=== PATIENT | male | born 1940 | race Caucasian/White ===

== ENCOUNTER → 2022-11-18 09:07 | Outpatient (CLI) | payer MEDICARE, BC, SELFPAY ==
[2022-11-18 19:44] LABS: Add Manual Diff / Slide Review NO; Basophils Absolute Auto 0 /uL (0-100); Basophils Percent Auto 0.3 % (0-2); Eosinophils Absolute Auto 100 /uL (0-450); Eosinophils Percent Auto 0.8 % (2-4); Hematocrit 36.6 % (41-53); Lymphocytes Absolute Auto 1500 /uL (1100-4500); Lymphocytes Percent Auto 9.9 % (25-40); Mean Corpuscular HGB Conc 32.8 % (30-36); Mean Corpuscular Hemoglobin 28.6 PG (26-34); Mean Corpuscular Volume 87.4 fL (80-100); Monocytes Absolute Auto 1300 /uL (0-900); Monocytes Percent Auto 8.6 % (3-14); Neutrophils Absolute Auto 11800 /uL (1500-7000); Neutrophils Percent Auto 80.4 % (50-75); Platelet Count 369 X10^3/uL (150-400); Red Blood Cell Count 4.19 X10^6/uL (4.5-5.9); Red Cell Distribution Width 12.9 % (11.6-14.8); White Blood Cell Count 14.7 X10^3/uL (4.5-11.0)
[2022-11-18 19:59] LABS: Alanine Aminotransferase 17 IU/L (<50); Albumin 3.4 g/dL (3.5-5.0); Alkaline Phosphatase 73 U/L (38-126); Aspartate Aminotransferase 24 IU/L (17-59); BUN Creatinine Ratio 24.5 (6-22); Bilirubin Total 0.5 mg/dL (0.2-1.3); Blood Urea Nitrogen 24 mg/dL (9-20); Calcium 9.3 mg/dL (8.4-10.2); Carbon Dioxide 29 mmol/L (22-32); Chloride 99 mmol/L (98-107); Cholesterol 157 mg/dL (140-199); Estimated Glomerular Filt Rate > 60 mL/min (>60); Globulin 3.3 g/dL (1.7-4.1); Glucose 137 mg/dL (80-110); HDL Cholesterol 36 mg/dL (40-60); HEMOLYSIS < 15 (0-50); LDL Cholesterol Calculated 108 mg/dL (<100); Potassium 4.8 mmol/L (3.4-5.1); Sodium 137 mmol/L (137-145); Total Protein 6.7 g/dL (6.3-8.2); Triglycerides 63 mg/dL (35-150)
[2022-11-18 20:26] LABS: Prostate Specific Antigen Scrn 4.07 ng/mL (0.1-4.0)
== END ==
PROVIDERS: PCP Family Medicine; Visit Provider Physician Assistant
DX: Z13.220 Encounter for screening for lipoid disorders (principal); Z12.5 Encounter for screening for malignant neoplasm of prostate; R53.83 Other fatigue
CPT/HCPCS: 80053; 80061; 85025; G0103

== ENCOUNTER → 2022-11-26 11:47 | Outpatient (CLI) | payer MEDICARE, BC, SELFPAY | PROVIDERS: PCP Family Medicine; Visit Provider Family Medicine | DX: R53.83 Other fatigue (principal); D64.9 Anemia, unspecified; D72.829 Elevated white blood cell count, unspecified; M25.60 Stiffness of unspecified joint, not elsewhere classified; M79.10 Myalgia, unspecified site; R01.1 Cardiac murmur, unspecified | CPT/HCPCS: 87086 ==

== ENCOUNTER → 2022-11-30 13:50 | Outpatient (CLI) | payer MEDICARE, BC, SELFPAY ==
[2022-11-30 19:33] LABS: Reticulocyte Count, Percent 0.7 % (0.9-2.6)
[2022-11-30 19:34] LABS: Add Manual Diff / Slide Review NO; Basophils Absolute Auto 100 /uL (0-100); Basophils Percent Auto 0.4 % (0-2); Eosinophils Absolute Auto 100 /uL (0-450); Eosinophils Percent Auto 1.1 % (2-4); Hematocrit 34.8 % (41-53); Hemoglobin 11.3 g/dL (13.5-17.5); Lymphocytes Absolute Auto 1600 /uL (1100-4500); Lymphocytes Percent Auto 11.6 % (25-40); Mean Corpuscular HGB Conc 32.3 % (30-36); Mean Corpuscular Volume 86.8 fL (80-100); Monocytes Absolute Auto 1100 /uL (0-900); Neutrophils Absolute Auto 10800 /uL (1500-7000); Neutrophils Percent Auto 78.9 % (50-75); Platelet Count 445 X10^3/uL (150-400); Red Blood Cell Count 4.01 X10^6/uL (4.5-5.9); Red Cell Distribution Width 13.1 % (11.6-14.8); White Blood Cell Count 13.7 X10^3/uL (4.5-11.0)
[2022-11-30 19:39] LABS: HEMOLYSIS < 15 (0-50); Iron 17 ug/dL (49-181)
[2022-11-30 19:48] LABS: HEMOLYSIS < 15 (0-50); Rheumatoid Factor 9.5 IU/mL (<12.0)
[2022-11-30 19:52] LABS: Erythrocyte Sedimentation Rate 69 MM/HR (0-15)
[2022-11-30 19:54] LABS: Percent Iron Saturation 7 % (20-50); Total Iron Binding Capacity 229 ug/dL (261-462); Transferrin 150 mg/dL (206-381)
[2022-11-30 20:40] LABS: TSH w/ Reflex to FT4 9.08 uIU/mL (0.47-4.68)
[2022-11-30 20:55] LABS: Creatine Kinase 27 U/L (55-170); Uric Acid 4.3 mg/dL (3.5-8.5)
[2022-11-30 21:13] LABS: Prostate Specific Antigen 4.36 ng/mL (0.10-4.00)
[2022-11-30 21:15] LABS: Alanine Aminotransferase 16 IU/L (<50); Albumin 3.4 g/dL (3.5-5.0); Albumin Globulin Ratio 1.1 (1.0-2.8); Alkaline Phosphatase 74 U/L (38-126); Aspartate Aminotransferase 25 IU/L (17-59); BUN Creatinine Ratio 28.4 (6-22); Bilirubin Total 0.5 mg/dL (0.2-1.3); Blood Urea Nitrogen 27 mg/dL (9-20); Calcium 9.1 mg/dL (8.4-10.2); Carbon Dioxide 29 mmol/L (22-32); Chloride 97 mmol/L (98-107); Estimated Glomerular Filt Rate > 60 mL/min (>60); Globulin 3.1 g/dL (1.7-4.1); Glucose 169 mg/dL (80-110); Sodium 136 mmol/L (137-145); Total Protein 6.5 g/dL (6.3-8.2)
[2022-11-30 21:23] LABS: C-Reactive Protein Quant 17.9 mg/dL (<1.0)
[2022-11-30 21:28] LABS: Ferritin 434 ng/mL (18-464)
[2022-11-30 21:49] LABS: Folate > 20.0 ng/mL (2.76-20.0); Vitamin B12 Reflex MMA if <400 252 pg/mL (239-931)
[2022-12-01 01:13] LABS: Free T4, Direct Thyroxine 1.25 ng/dL (0.78-2.19)
[2022-12-03 16:27] LABS: ANA Screen, IFA Negative (.)
[2022-12-05 17:25] LABS: Methylmalonic Acid,Serum 255 nmol/L (0-378)
== END ==
PROVIDERS: PCP Family Medicine; Visit Provider Family Medicine
DX: R63.0 Anorexia (principal); D64.9 Anemia, unspecified; Z12.5 Encounter for screening for malignant neoplasm of prostate; D72.829 Elevated white blood cell count, unspecified; M25.60 Stiffness of unspecified joint, not elsewhere classified; M79.10 Myalgia, unspecified site; R01.1 Cardiac murmur, unspecified; R53.83 Other fatigue
CPT/HCPCS: 80053; 82550; 82607; 82728; 82746; 83540; 83550; 83921; 84153; 84439; 84443; 84550; 85025; 85045; 85651; 86038; 86140; 86430; G0103

== ENCOUNTER 2022-12-05 15:09 | Emergency (ER) | payer MEDICARE, BC, SELFPAY ==
[2022-12-05 15:19] VITALS: BP 190/85; PULSE 85; O2SAT 98
[2022-12-05 15:23] VITALS: BP 182/82; PULSE 85; RESP 18; TEMP 36.8; O2SAT 98; BMI 20.6
[2022-12-05 15:30] VITALS: PULSE 79; O2SAT 98
--- NOTE | 2022-12-05 15:32 | ED_ITS ---
HPI - General Adult General Chief complaint: Weakness Stated complaint: Generalized pain all over, weak, Time Seen by Provider: 12/05/22 15:13 Source: patient and family Mode of arrival: Ambulatory History of Present Illness HPI narrative: Patient is an 82-year-old male who is here from [facility]. Takes no medications other than an occasional naproxen. Has had 1 month of symptoms to include decreased appetite. Decreased oral intake of food. Body aches specifically behind both of his knees and also in his shoulders and on the top of his head. He is feeling very weak. No fevers. No chest pain. No shortness of breath. No abdominal pain. No nausea vomiting. No urinary symptoms. No change in bowel habits. No skin rashes. Saw his primary doctor a couple days ago. Had labs drawn. Was also found to have a murmur. An echocardiogram has been ordered. There has been no specialist evaluation up to this point. He is not followed up with the primary doctor. He states that he was instructed that maybe coming to the emergency department today would provide more information to his symptoms. Related Data Previous Rx's Medication Instructions Recorded naproxen 500 mg tablet 500 mg PO BID PRN pain #30 tabs 11/24/22 Allergies Allergy/AdvReac Type Severity Reaction Status Date / Time No Known Drug Allergies Allergy Verified 11/26/22 10:16 Review of Systems Review of Systems ROS Unobtainable: All systems reviewed & are unremarkable except as noted in HPI and below Patient History Social History Smoking Status: Never smoker Smoking Status: Never smoker alcohol intake frequency: a few times a month Alcohol type: beer Substance Use Type: does not use Exam Initial Vital Signs Initial Vital Signs: Vital Signs Pulse Rate 85 12/05/22 15:19 Blood Pressure 190/85 H 12/05/22 15:19 Pulse Oximetry 98 12/05/22 15:19 Const General: cooperative, comfortable and No ill appearing HENMT Head: normal to inspection and normocephalic Resp Effort & Inspection: normal respiratory effort Auscultation: clear to auscultation bilaterally Cardio Rate: regular rate Rhythm: regular rhythm Heart Sounds: murmur GI Inspection: normal to inspection Skin General: no rashes or lesions noted Neuro General: patient alert, patient awake, patient oriented x3 and moves all extremities Extrem General: normal to inspection and capillary refill normal Course Orders Ordered: ED Orders 12/05/22 15:30 Covid-19 + FLU A/B + RSV - PCR Stat 12/05/22 15:32 XR chest 1V Stat 12/05/22 15:35 CK [Creatine Kinase] Stat Complete Blood Count AUTO DIFF Stat Comprehensive Metabolic Panel Stat Lipase Stat Thyroid Stimulating Hormone Stat Vital Signs Vital signs: Vital Signs - 8 hr 12/05/22 15:23 12/05/22 15:19 12/05/22 15:19 Temperature 98.2 F Pulse Rate 85 85 Respiratory Rate 18 Blood Pressure 182/82 H 190/85 H Pulse Oximetry 98 98 Oxygen Delivery Method Room Air 12/05/22 15:30 Temperature Pulse Rate 79 Respiratory Rate Blood Pressure Pulse Oximetry 98 Oxygen Delivery Method Medical Decision Making Lab Data Lab results reviewed: Yes I reviewed the patient's lab results. 12/05/22 15:35 12/05/22 15:35 Labs: Lab Results 12/05/22 12/05/22 12/05/22 Range/Units 15:30 15:35 15:35 WBC 11.1 H (4.5-11.0) X10^3/uL RBC 3.81 L (4.5-5.9) X10^6/uL Hgb 10.6 L (13.5-17.5) g/dL Hct 32.6 L (41-53) % MCV 85.7 (80-100) fL MCH 27.9 (26-34) PG MCHC 32.6 (30-36) % RDW 13.2 (11.6-14.8) % Plt Count 440 H (150-400) X10^3/uL Neut % (Auto) 73.3 (50-75) % Lymph % (Auto) 15.4 L (25-40) % [place] % (Auto) 9.0 (3-14) % Eos % (Auto) 1.6 L (2-4) % Baso % (Auto) 0.7 (0-2) % Neut # (Auto) 8200 H (8173-0088) /uL Lymph # (Auto) 1700 (3185-7535) /uL [place] # (Auto) 1000 H (0-900) /uL Eos # (Auto) 200 (0-450) /uL Baso # (Auto) 100 (0-100) /uL Sodium 133 L (137-145) mmol/L Potassium 4.2 (3.4-5.1) mmol/L Chloride 99 (98-107) mmol/L Carbon Dioxide 29 (22-32) mmol/L BUN 18 (9-20) mg/dL Creatinine 0.86 (0.66-1.25) mg/dL Estimated GFR > 60 (>60) mL/min BUN/Creatinine Ratio 20.9 (6-22) Glucose 130 H (80-110) mg/dL Calcium 8.9 (8.4-10.2) mg/dL Total Bilirubin 0.4 (0.2-1.3) mg/dL AST 23 (17-59) IU/L ALT 16 (<50) IU/L Alkaline Phosphatase 62 (38-126) U/L Total Creatine Kinase (55-170) U/L Total Protein 6.8 (6.3-8.2) g/dL Albumin 3.4 L (3.5-5.0) g/dL Globulin 3.4 (1.7-4.1) g/dL Albumin/Globulin Ratio 1.0 (1.0-2.8) Lipase 23 (23-300) U/L TSH (0.47-4.68) uIU/mL SARS-CoV-2 (PCR) Negative (Negative) Influenza A (RT-PCR) Flu a negative (NEGATIVE) Influenza B (RT-PCR) Flu b negative (NEGATIVE) RSV (PCR) Negative (Negative) 12/05/22 12/05/22 Range/Units 15:35 15:35 WBC (4.5-11.0) X10^3/uL RBC (4.5-5.9) X10^6/uL Hgb (13.5-17.5) g/dL Hct (41-53) % MCV (80-100) fL MCH (26-34) PG MCHC (30-36) % RDW (11.6-14.8) % Plt Count (150-400) X10^3/uL Neut % (Auto) (50-75) % Lymph % (Auto) (25-40) % [place] % (Auto) (3-14) % Eos % (Auto) (2-4) % Baso % (Auto) (0-2) % Neut # (Auto) (3886-0277) /uL Lymph # (Auto) (6342-4914) /uL [place] # (Auto) (0-900) /uL Eos # (Auto) (0-450) /uL Baso # (Auto) (0-100) /uL Sodium (137-145) mmol/L Potassium (3.4-5.1) mmol/L Chloride (98-107) mmol/L Carbon Dioxide (22-32) mmol/L BUN (9-20) mg/dL Creatinine (0.66-1.25) mg/dL Estimated GFR (>60) mL/min BUN/Creatinine Ratio (6-22) Glucose (80-110) mg/dL Calcium (8.4-10.2) mg/dL Total Bilirubin (0.2-1.3) mg/dL AST (17-59) IU/L ALT (<50) IU/L Alkaline Phosphatase (38-126) U/L Total Creatine Kinase < 20 L (55-170) U/L Total Protein (6.3-8.2) g/dL Albumin (3.5-5.0) g/dL Globulin (1.7-4.1) g/dL Albumin/Globulin Ratio (1.0-2.8) Lipase (23-300) U/L TSH 8.24 H (0.47-4.68) uIU/mL SARS-CoV-2 (PCR) (Negative) Influenza A (RT-PCR) (NEGATIVE) Influenza B (RT-PCR) (NEGATIVE) RSV (PCR) (Negative) Urine Dip Bedside Urine Glucose Negative Bedside Urine Bilirubin - Negative Bedside Urine Ketone - Negative Urine Specific [place] 1.015 Bedside Urine Occult Blood - Negative Bedside Urine pH 6.0 Bedside Urine Protein - Negative Bedside Urine Urobilinogen - Negative Bedside Urine Nitrite - Negative Bedside Urine Leukocytes - Negative Esterase Point of care testing: Urine Dip Bedside Urine Glucose Negative Bedside Urine Bilirubin - Negative Bedside Urine Ketone - Negative Urine Specific [place] 1.015 Bedside Urine Occult Blood - Negative Bedside Urine pH 6.0 Bedside Urine Protein - Negative Bedside Urine Urobilinogen - Negative Bedside Urine Nitrite - Negative Bedside Urine Leukocytes - Negative Esterase Imaging Data Chest x-ray: Radiologist's Impression: PROCEDURE:? XR CHEST 1V ? INDICATIONS:? eval for PNA ? TECHNIQUE:? One view of the chest was acquired.? ? COMPARISON:? None. ? FINDINGS:? ? Surgical changes and devices:? None.? ? Lungs and pleura:? Lungs are clear.? No pleural effusions or pneumothorax.? ? Mediastinum:? Mediastinal contours appear normal.? Heart size is normal.? Atherosclerotic calcification of the aortic arch is noted.? ? Bones and chest wall:? No suspicious bony lesions.? Degenerative changes are seen, which are worst involving the right shoulder.? Overlying soft tissues appear unremarkable.? IMPRESSION:? No focal infiltrates are seen. MDM Narrative Medical decision making narrative: Patient's workup here in the emergency department is very reassuring. His leukocytosis today is actually improved from prior. Is not clinically dehydrated. There was no specific signs of an infection. Advised the patient that he should talk with his primary doctor about further workup and to go over his labs from today. Discharge Plan Departure Patient Disposition: Home Clinical Impression: Fatigue Activity Restrictions/Additional Instructions: I do recommend that you talk with your primary doctor about further workup. You may need to talk with your primary doctor about further workup of your thyroid and potentially a referral to see Gastroenterology. Prescriptions: No Action naproxen 500 mg tablet 500 mg PO BID PRN (Reason: pain) Qty: 30 0RF Rx Instructions: Take with food Referrals: Rik Pool MD [Primary Care Provider] - Stand Alone Forms: Patient Portal/API
--- NOTE | 2022-12-05 15:32 | DI.RAD.S_ITS ---
PROCEDURE: XR CHEST 1V INDICATIONS: eval for PNA TECHNIQUE: One view of the chest was acquired. COMPARISON: None. FINDINGS: Surgical changes and devices: None. Lungs and pleura: Lungs are clear. No pleural effusions or pneumothorax. Mediastinum: Mediastinal contours appear normal. Heart size is normal. Atherosclerotic calcification of the aortic arch is noted. Bones and chest wall: No suspicious bony lesions. Degenerative changes are seen, which are worst involving the right shoulder. Overlying soft tissues appear unremarkable. IMPRESSION: No focal infiltrates are seen. Dictated by: Ivan Aldana M.D. on 12/05/2022 at 15:16 Approved by: Ivan Aldana M.D. on 12/05/2022 at 15:18
[2022-12-05 15:51] LABS: Add Manual Diff / Slide Review NO; Basophils Absolute Auto 100 /uL (0-100); Basophils Percent Auto 0.7 % (0-2); Eosinophils Absolute Auto 200 /uL (0-450); Eosinophils Percent Auto 1.6 % (2-4); Hematocrit 32.6 % (41-53); Hemoglobin 10.6 g/dL (13.5-17.5); Lymphocytes Absolute Auto 1700 /uL (1100-4500); Lymphocytes Percent Auto 15.4 % (25-40); Mean Corpuscular HGB Conc 32.6 % (30-36); Mean Corpuscular Hemoglobin 27.9 PG (26-34); Mean Corpuscular Volume 85.7 fL (80-100); Monocytes Absolute Auto 1000 /uL (0-900); Neutrophils Absolute Auto 8200 /uL (1500-7000); Neutrophils Percent Auto 73.3 % (50-75); Platelet Count 440 X10^3/uL (150-400); Red Blood Cell Count 3.81 X10^6/uL (4.5-5.9); Red Cell Distribution Width 13.2 % (11.6-14.8); White Blood Cell Count 11.1 X10^3/uL (4.5-11.0)
[2022-12-05 16:00] LABS: Alanine Aminotransferase 16 IU/L (<50); Albumin 3.4 g/dL (3.5-5.0); Alkaline Phosphatase 62 U/L (38-126); Aspartate Aminotransferase 23 IU/L (17-59); BUN Creatinine Ratio 20.9 (6-22); Bilirubin Total 0.4 mg/dL (0.2-1.3); Blood Urea Nitrogen 18 mg/dL (9-20); Calcium 8.9 mg/dL (8.4-10.2); Carbon Dioxide 29 mmol/L (22-32); Chloride 99 mmol/L (98-107); Estimated Glomerular Filt Rate > 60 mL/min (>60); Globulin 3.4 g/dL (1.7-4.1); Glucose 130 mg/dL (80-110); HEMOLYSIS < 15 (0-50); Lipase 23 U/L (23-300); Potassium 4.2 mmol/L (3.4-5.1); Sodium 133 mmol/L (137-145); Total Protein 6.8 g/dL (6.3-8.2)
[2022-12-05 16:01] LABS: Creatine Kinase < 20 U/L (55-170)
[2022-12-05 16:20] LABS: Influenza A - CEPHEID Flu A NEGATIVE (NEGATIVE); Influenza B - CEPHEID Flu B NEGATIVE (NEGATIVE); Respiratory Syncytial Virus Negative (Negative)
[2022-12-05 16:33] LABS: Thyroid Stimulating Hormone 8.24 uIU/mL (0.47-4.68)
[2022-12-05 16:35] LABS: COVID-19 CEPHEID 4-PLEX PCR Negative (Negative)
[2022-12-05 17:35] VITALS: BP 169/79; PULSE 76; RESP 14; O2SAT 99
== END 2022-12-05 17:38 | disposition home or self-care (01) ==
PROVIDERS: Emergency Provider Emergency Medicine; PCP Family Medicine
DX: R53.83 Other fatigue (principal); R79.89 Other specified abnormal findings of blood chemistry; Z20.822 Contact with and (suspected) exposure to COVID-19
CPT/HCPCS: 0241U; 36415; 71045; 80053; 81003; 82550; 83690; 84443; 85025; 99283; 99284

== ENCOUNTER → 2022-12-08 11:45 | Outpatient (CLI) | payer MEDICARE, BC, SELFPAY ==
[2022-12-10 14:41] LABS: Fecal Immunochemical Test Negative (Negative)
== END ==
PROVIDERS: PCP Family Medicine; Visit Provider Family Medicine
DX: D50.9 Iron deficiency anemia, unspecified (principal)
CPT/HCPCS: 82274

== ENCOUNTER → 2022-12-14 09:41 | Outpatient (CLI) | payer MEDICARE, BC, SELFPAY ==
--- NOTE | 2022-12-14 09:43 | DI.ECHO.S_ITS ---
[facility] +---------+ [facility] +---------+ : : [address] : : : : [place], [place] : : : : [id number] : : : : Phone: [phone] Echocardiogram Report + + :Name: FABRICIO SMITH Study Date: 12/14/2022 Height: 71 in : :[facility] ReadingLocation: Weight: 138 lb : : Gender: Male BSA: 1.8 m2 : :: 1940 Age: 82 yrs BP: 195/84 mmHg: :Reason For Study: Heart Murmur : :Ordering Physician: Jimena, : :Kriss Performed By: Cassandra Valderrama : :Referring: Kriss Hess : + + Interpretation Summary 1) Normal left ventricular thickness, size, wall motion, and systolic function (EF 60-65%). 2) Normal right ventricular size and function. 3) There is moderate aortic stenosis (valve area 1.2cm2, mean gradient 14mmHg, severity ratio 0.35). 4) No prior Echo available for comparison. Procedure: A two-dimensional transthoracic echocardiogram with color flow and Doppler was performed. The study quality was technically adequate. There is no prior echocardiogram noted for this patient. The patient was in normal sinus rhythm during the exam. Left Ventricle: The left ventricle is normal in size and wall thickness. The ejection fraction is estimated to be 60-65%. Left ventricular systolic function appears normal without focal wall motion abnormalities. Diastolic parameters suggest a relaxation abnormality of the left ventricle, consistent with probable normal filling pressures. Right Ventricle: The right ventricle is normal in size and function. Atria: The left atrial size is normal. Right atrial size is normal. There is no Doppler evidence for an interatrial shunt. Mitral Valve: The mitral valve leaflets appear mildly thickened, but open well. There is no mitral valve stenosis. There is trace mitral regurgitation. Aortic Valve: The aortic valve is trileaflet. The aortic valve is moderately calcified. There is moderate aortic stenosis. The peak aortic velocity is 2.56 m/sec. The aortic valve mean gradient is 14 mmHg. No aortic regurgitation is present. Tricuspid Valve: The tricuspid valve leaflets are thin and pliable. There is no tricuspid stenosis. There is trace tricuspid regurgitation. Pulmonic Valve: The pulmonic valve leaflets are thin and pliable; valve motion is normal. There is no pulmonic valvular stenosis. There is trace pulmonic regurgitation. Great Vessels: The aortic root is borderline dilated. The ascending aorta is normal in size. The pulmonary artery is normal size. The IVC is of normal diameter and collapses greater than 50% with a sniff. This suggests a low right atrial pressure of 3 mm Hg. Pericardium/ Pleura There is no pericardial effusion. There is no pleural effusion. MMode/2D Measurements & Calculations LVIDd: 4.5 cm LVOT diam: 2.1 cm LVIDs: 2.7 cm Ao root diam: 3.8 cm FS: 40.0 % asc Aorta Diam: 3.0 cm IVSd: 1.0 cm LVPWd: 0.80 cm LV bhakta. diameter/BSA (cm/m^2): 2.5 LV sys. diameter/BSA (cm/m^2): 1.5 LA A2 area: 14.8 cm2 RA long axis: 4.1 cm LA A4 area: 10.1 cm2 RA area: 10.5 cm2 LA length (vol): 4.6 cm RA vol: 23.0 ml LA vol: 27.5 ml RA : 12.8 ml/m2 LA vol index: 15.3 ml/m2 RVD1 (basal): 3.7 cm LVLs ap4: 6.2 cm LVLd ap2: 8.7 cm TAPSE_phl: 2.8 cm LVLs ap2: 6.5 cm Doppler Measurements & Calculations Ao V2 max: 252.4 cm/sec LVOT Max Reginaldo: 91.1 cm/sec Ao V2 mean: 170.8 cm/sec LV V1 max P.3 mmHg Ao max P.0 mmHg LV V1 VTI: 20.7 cm Ao mean P.8 mmHg TAMIR(I,D): 1.2 cm2 Ao V2 VTI: 58.7 cm TAMIR(V,D): 1.3 cm2 sev ratio: 0.35 TAMIR indexed to BSA (cm^2/m^2): 0.69 MV E max reginaldo: 77.6 cm/sec TR max reginaldo: 208.2 cm/sec MV A max reginaldo: 104.0 cm/sec TR max P.3 mmHg MV E/A: 0.75 PA V2 max: 131.0 cm/sec Med Peak E' Reginaldo: 7.0 cm/sec PA V2 mean: 86.2 cm/sec E/E' med: 11.1 PA mean P.0 mmHg Lat Peak E' Reginaldo: 9.0 cm/sec PA pr(Accel): 43.5 mmHg E/E' lat: 8.6 E/e' average: 9.8 MV dec time: 0.31 sec SV(LVOT): 72.8 ml AV VR_phl: 0.36 TAMIR(VTI)/BSA_phl: 0.56 Reading Physician:01:00 PM
--- NOTE | 2022-12-14 09:43 | DI.CT.S_ITS ---
PROCEDURE: CT ABDOMEN PELVIS W CON INDICATIONS: WT loss- 10# in one month, iron deficiency anemia, PSA High TECHNIQUE: After the administration of intravenous contrast, axial sections acquired from the lung bases to the pubic symphysis. Coronal and sagittal reformats were performed. For radiation dose reduction, the following was used: automated exposure control, adjustment of mA and/or kV according to patient size. COMPARISON: None. FINDINGS: Lung bases: No pleural effusion. ABDOMEN: Liver: Small cyst in segment 8. A few scattered small hypodensities are also present, too small to characterize. Gallbladder: Unremarkable. Biliary ducts: Unremarkable. Pancreas: Atrophic with scattered parenchymal calcifications present. Dilation of the main duct is present at the body/tail measuring up to 5 millimeters. Spleen: Unremarkable. Adrenal Glands: Unremarkable. Kidneys and Ureters: No hydronephrosis. Left renal cortical cyst. Stomach and Bowel: No evidence of mechanical small bowel obstruction. Mild predominantly sigmoid colonic diverticulosis without evidence of acute diverticulitis. Peritoneum: No abnormal intraperitoneal fluid. No free air. Abdominal Nodes: No retroperitoneal or mesenteric adenopathy by size criteria. Vessels: Aorta and inferior vena cava are normal in size. PELVIS: Pelvic Organs: Prostatomegaly. Bladder: Unremarkable. Pelvic Nodes: No enlarged lymph nodes. Bones: Multilevel degenerative change of the visualized spine. IMPRESSION: 1. The prostate gland appears enlarged. Otherwise, the prostate gland is not well evaluated by CT. If there is clinical suspicion for prostatic neoplasm correlation with digital rectal examination and consideration of dedicated MRI of the prostate gland may be helpful. 2. Atrophy of the pancreas with scattered parenchymal calcifications suggestive of chronic calcific pancreatitis. Dilation of the main duct of the pancreas is also present, which could be sequela of glandular atrophy, postinflammatory change, or related to obstruction by parenchymal calcifications. Malignant obstruction is not excludable. Dictated by: Mat Mehta M.D. on 12/14/2022 at 17:20 Approved by: Mat Mehta M.D. on 12/14/2022 at 17:34
== END ==
PROVIDERS: PCP Family Medicine; Referring Provider Family Medicine; Visit Provider Family Medicine
DX: I35.0 Nonrheumatic aortic (valve) stenosis (principal); R01.1 Cardiac murmur, unspecified; R53.83 Other fatigue; K86.89 Other specified diseases of pancreas; K57.30 Diverticulosis of large intestine without perforation or abscess without bleeding; D72.829 Elevated white blood cell count, unspecified; D50.9 Iron deficiency anemia, unspecified; D64.9 Anemia, unspecified; R63.4 Abnormal weight loss; R97.20 Elevated prostate specific antigen [PSA]
CPT/HCPCS: 74177; 93306; Q9967